=== PATIENT | male | born 1955 | race Caucasian/White ===

== ENCOUNTER → 2017-01-23 | Outpatient (CLI) | payer OTHER | LOC: BMCIMAGING 08:49 | PROVIDERS: ATTEND Family Medicine | DX: R14.0 Abdominal distension (gaseous) (principal); R10.9 Unspecified abdominal pain ==

== ENCOUNTER 2017-02-06 18:57 | Emergency (ER) | payer OTHER ==
[2017-02-06 19:10] VITALS: TEMP 97.9
[2017-02-06] MEDS ORDERED: HYDROmorphONE/DILAUDID 1 MG/ML SYR IVP ONE (19:39)
[2017-02-06] MEDS ORDERED: ONDANSETRON 4 MG/2 ML VIAL IVP ONE (19:39)
[2017-02-06] MEDS ORDERED: NS 1,000 ML IV ONE (19:39)
--- NOTE | 2017-02-06 19:40 | EDPHY ---
H & P Stated Complaint: abd pain bloating similar episode 2 weeks ago constipated pre urgent care HPI/ROS: HPI CHIEF COMPLAINT: Abdominal pain, abdominal bloating HISTORY OF PRESENT ILLNESS: This patient very pleasant 61-year-old male no significant medical history does not take any daily medications he presents emergency room with 1 day of lower abdominal pain and abdominal bloating describes abdominal fullness and distension. Patient tells me that he had the same exact episode 2 weeks ago when he went to urgent care had an x-ray was thought to be constipated he took milk of magnesia and eventually had a bowel movement felt better. He tells me that he has normal bowel movements every day. He has been having normal bowel movements no difference in his stool. He has not had any fever he has not had any nausea vomiting he does tell me he feels anxious. His main complaint is abdominal bloating. He did attempt to take 2 doses of milk of magnesia has not relieved his abdominal discomfort and abdominal bloating. He does tell me he had a colonoscopy that was normal. No surgical history of the abdomen. He does tell me since arriving to the emergency room did have a small bowel movement from the milk a magnesia he took earlier. Tells me still feels abdominal pain and abdominal bloating. Denies chest pain, shortness of breath, did mention that he had lower back pain with his abdominal pain. Past Medical History: No medical history Past Surgical History: no surgical history Social History: Denies daily use of drugs alcohol tobacco products, works as an executive, occasional alcohol use Family History: Noncontributory ROS REVIEW OF SYSTEMS: A comprehensive 10 point review of systems is otherwise negative aside from elements mentioned in the history of present illness. Exam Constitutional triage nursing summary reviewed, vital signs reviewed, awake/ alert. Eyes normal conjunctivae and sclera, EOMI, PERRLA. HENT normal inspection, atraumatic, moist mucus membranes, no epistaxis, neck supple/ no meningismus, no raccoon eyes. Respiratory clear to auscultation bilaterally, normal breath sounds, no respiratory distress, no wheezing. Cardiovascular rate normal, regular rhythm, no murmur, no edema, distal pulses normal. Gastrointestinal soft, mild tenderness palpation lower abdomen, no rebound, no guarding, normal bowel sounds, no distension, no pulsatile mass. Genitourinary no CVA tenderness. Musculoskeletal no midline vertebral tenderness, full range of motion, no calf swelling, no tenderness of extremities, no meningismus, good pulses, neurovascularly intact. Skin pink, warm, & dry, no rash, skin atraumatic. Neurologic awake, alert and oriented x 3, AAOx3, moves all 4 extremities equally, motor intact, sensory intact, CN II-XII intact, normal cerebellar, normal vision, normal speech. Psychiatric normal mood/affect. Heme/Lymph/Immune no lymphadenopathy. Differential diagnosis includes but is not limited to and in no particular order : Bowel obstruction, appendicitis, gallbladder disease, diverticulitis, colitis , enteritis, perforated viscus, gastritis, GERD, esophagitis, urinary tract infection, pyelonephritis, kidney stones Medical Decision Making: Plan for this patient IV establishment, IV fluid bolus , IV Dilaudid for acute pain control, IV Zofran for nausea. CT scan abdomen pelvis with IV contrast rule out acute intra-abdominal process. Re-evaluation: CT scan of the abdomen pelvis with IV contrast. The results of the study are negative for acute intra-abdominal process The study was read by Dr. Richard Zhu. I viewed the images myself on the PACS system. [id number]: I did go over extensively this patient's blood work and CT scan. He understands to follow up outpatient with his CT scan lymph nodes in 3-6 months. Review of his blood work and CT scan shows no acute inflammatory process or anything to indicate there is an acute surgical emergency in his abdomen. Blood work reassuring. He understands. I do recommend MiraLax staying well hydrated he also is extremely anxious here I did give him IV Ativan he tells me that made him feel much better. I will allow him to have a take-home pack of Ativan for anxiety. He is requesting this. Understands return emergency room if develops worsening abdominal pain fever vomiting. Source: Patient - Personal History Current Tetanus/Diphtheria Vaccine: Yes Current Tetanus Diphtheria and Acellular Pertussis (TDAP): Yes - Medical/Surgical History Hx Asthma: No Hx Chronic Respiratory Disease: No Hx Diabetes: No Hx Cardiac Disease: No Hx Renal Disease: No Hx Cirrhosis: No Hx Alcoholism: No Hx HIV/AIDS: No Hx Splenectomy or Spleen Trauma: No Other PMH: tonsils - Social History Smoking Status: Never smoked Constitutional: Initial Vital Signs Temperature (C) 36.6 C 02/06/17 19:05 Heart Rate 84 02/06/17 19:05 Respiratory Rate 18 02/06/17 19:05 Blood Pressure 139/89 H 02/06/17 19:05 O2 Sat (%) 98 02/06/17 19:05 O2 Delivery Mode Room Air Allergies/Adverse Reactions: ampicillin Allergy (Verified 02/06/17 19:05) Home Medications: Medication Instructions Recorded Advil 02/06/17 LORazepam [Ativan (*)] 1 mg PO DAILY #5 tab 02/06/17 Medical Decision Making - Diagnostics Imaging Results: Imaging Impressions Abdomen CT 02/06/17 19:48 Impression: 1. No acute findings in the abdomen or pelvis. 2. Nonspecific mildly prominent lymph nodes in the right upper quadrant, which could be reactive. Recommend follow-up CT in 3-6 months. 3. Fatty liver. 4. 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 5. Additional findings, as above. Findings discussed with Dick Palma M.D., on February 06, 2017 at 2133 hours. E:amm - Data Points Laboratory Results: Laboratory Results 02/06/17 19:55 02/06/17 19:55 02/06/17 02/06/17 02/06/17 20:30 19:55 19:55 WBC RBC Hgb Hct MCV MCH MCHC RDW Plt Count MPV Neut % (Auto) Lymph % (Auto) [place] % (Auto) Eos % (Auto) Baso % (Auto) Nucleat RBC Rel Count Absolute Neuts (auto) Absolute Lymphs (auto) Absolute Monos (auto) Absolute Eos (auto) Absolute Basos (auto) Absolute Nucleated RBC Immature Gran % Immature Gran # PT 13.8 SEC SEC (12.0-15.0) INR 1.07 (0.83-1.16) APTT 25.9 SEC SEC (23.0-38.0) VBG Lactic Acid Sodium 140 mEq/L mEq/L (134-144) Potassium 3.8 mEq/L mEq/L (3.5-5.2) Chloride 102 mEq/L mEq/L (97-110) Carbon Dioxide 25 mEq/l mEq/l (22-31) Anion Gap 13 mEq/L mEq/L (8-16) BUN 12 mg/dL mg/dL (7-23) Creatinine 0.7 mg/dL mg/dL (0.7-1.3) Estimated GFR > 60 Glucose 92 mg/dL mg/dL (70-100) Calcium 10.1 mg/dL mg/dL (8.5-10.4) Total Bilirubin 1.1 mg/dL mg/dL (0.1-1.4) Conjugated Bilirubin 0.5 mg/dL mg/dL (0.0-0.5) Unconjugated Bilirubin 0.6 mg/dL mg/dL (0.0-1.1) AST 65 IU/L H IU/L (17-59) ALT 63 IU/L IU/L (21-72) Alkaline Phosphatase 89 IU/L IU/L (38-126) Troponin I < 0.012 ng/mL ng/mL (0-0.034) Total Protein 7.5 g/dL g/dL (6.3-8.2) Albumin 4.5 g/dL g/dL (3.5-5.0) Lipase 340.0 IU/L H IU/L (23-300) Urine Color PALE YELLOW Urine Appearance CLEAR Urine pH 8.0 H (5.0-7.5) Ur Specific [place] 1.006 (1.002-1.030) Urine Protein NEGATIVE (NEGATIVE) Urine Ketones TRACE H (NEGATIVE) Urine Blood NEGATIVE (NEGATIVE) Urine Nitrate NEGATIVE (NEGATIVE) Urine Bilirubin NEGATIVE (NEGATIVE) Urine Urobilinogen NEGATIVE EU EU (0.2-1.0) Ur Leukocyte Esterase NEGATIVE (NEGATIVE) Urine Glucose NEGATIVE (NEGATIVE) 02/06/17 02/06/17 19:55 19:55 WBC 5.77 10^3/uL 10^3/uL (3.80-9.50) RBC 4.56 10^6/uL 10^6/uL (4.40-6.38) Hgb 15.8 g/dL g/dL (13.7-17.5) Hct 45.6 % % (40.0-51.0) MCV 100.0 fL H fL (81.5-99.8) MCH 34.6 pg H pg (27.9-34.1) MCHC 34.6 g/dL g/dL (32.4-36.7) RDW 11.7 % % (11.5-15.2) Plt Count 111 10^3/uL L 10^3/uL (150-400) MPV 11.8 fL H fL (8.7-11.7) Neut % (Auto) 56.5 % % (39.3-74.2) Lymph % (Auto) 27.0 % % (15.0-45.0) [place] % (Auto) 15.4 % H % (4.5-13.0) Eos % (Auto) 0.3 % L % (0.6-7.6) Baso % (Auto) 0.5 % % (0.3-1.7) Nucleat RBC Rel Count 0.0 % % (0.0-0.2) Absolute Neuts (auto) 3.25 10^3/uL 10^3/uL (1.70-6.50) Absolute Lymphs (auto) 1.56 10^3/uL 10^3/uL (1.00-3.00) Absolute Monos (auto) 0.89 10^3/uL H 10^3/uL (0.30-0.80) Absolute Eos (auto) 0.02 10^3/uL L 10^3/uL (0.03-0.40) Absolute Basos (auto) 0.03 10^3/uL 10^3/uL (0.02-0.10) Absolute Nucleated RBC 0.00 10^3/uL 10^3/uL (0-0.01) Immature Gran % 0.3 % % (0.0-1.1) Immature Gran # 0.02 10^3/uL 10^3/uL (0.00-0.10) PT INR APTT VBG Lactic Acid 2.1 mmol/L mmol/L (0.7-2.1) Sodium Potassium Chloride Carbon Dioxide Anion Gap BUN Creatinine Estimated GFR Glucose Calcium Total Bilirubin Conjugated Bilirubin Unconjugated Bilirubin AST ALT Alkaline Phosphatase Troponin I Total Protein Albumin Lipase Urine Color Urine Appearance Urine pH Ur Specific [place] Urine Protein Urine Ketones Urine Blood Urine Nitrate Urine Bilirubin Urine Urobilinogen Ur Leukocyte Esterase Urine Glucose Medications Given: Discontinued Medications Hydromorphone HCl (Dilaudid) 0.5 mg IVP EDNOW ONE Stop: 02/06/17 19:40 Last Admin: 02/06/17 19:58 Dose: 0.5 mg Sodium Chloride (Ns) 1,000 mls @ 0 mls/hr IV ONCE ONE PRN Reason: Wide Open Stop: 02/06/17 19:40 Last Admin: 02/06/17 19:58 Dose: 1,000 mls Lorazepam (Ativan Injection) 1 mg IVP EDNOW ONE Stop: 02/06/17 21:26 Last Admin: 02/06/17 21:42 Dose: 1 mg Ondansetron HCl (Zofran) 4 mg IVP EDNOW ONE Stop: 02/06/17 19:40 Last Admin: 02/06/17 19:59 Dose: 4 mg Departure - Departure Disposition: Home, Routine, Self-Care Clinical Impression: Anxiety Abdominal pain Qualifiers: Abdominal location: generalized Qualified Code(s): R10.84 - Generalized abdominal pain Condition: Good Instructions: Abdominal Pain (ED), Anxiety (ED) Additional Instructions: 1. Return emergency room if you have worsening abdominal pain fever vomiting. Referrals: Charles Allred MD [Primary Care Provider] - As per Instructions Richard Shelton MD [Medical Doctor] - As per Instructions Prescriptions: LORazepam [Ativan (*)] 1 mg PO DAILY #5 tab
[2017-02-06] MEDS ORDERED: IOPAMIDOL (ISOVUE-300) 100 ML BTL IV ONE (19:50)
[2017-02-06 20:16] LABS: % IMMATURE GRANULYOCYTES 0.3 % (0.0-1.1); ABSOLUTE IMMATURE GRANULOCYTES 0.02 10^3/uL (0.00-0.10); ADD DIFF? NO; ADD MORPH? NO; ADD SCAN? NO; ATYPICAL LYMPHOCYTE FLAG 0 (0-99); FRAGMENT RBC FLAG 0 (0-99); HEMATOCRIT 45.6 % (40.0-51.0); HEMOGLOBIN 15.8 g/dL (13.7-17.5); LEFT SHIFT FLG 0 (0-99); LIPEMIA HEMOLYSIS FLAG 90 (0-99); MEAN CELL HEMOGLOBIN 34.6 pg (27.9-34.1); MEAN CELL HEMOGLOBIN CONCENTR. 34.6 g/dL (32.4-36.7); MEAN PLATELET VOLUME 11.8 fL (8.7-11.7); PLATELET CLUMPS FLAG 0 (0-99); PLATELET COUNT 111 10^3/uL (150-400); RED BLOOD CELL COUNT 4.56 10^6/uL (4.40-6.38); RED CELL DISTRIBUTION WIDTH 11.7 % (11.5-15.2)
[2017-02-06 20:29] LABS: INR 1.07 (0.83-1.16); PROTIME(PATIENT) 13.8 SEC (12.0-15.0)
[2017-02-06 20:30] LABS: APTT 25.9 SEC (23.0-38.0)
[2017-02-06 20:39] LABS: COLOR PALE YELLOW; LEUKOCYTE ESTERASE,URINE NEGATIVE (NEGATIVE); NITRITE,URINE NEGATIVE (NEGATIVE)
[2017-02-06 20:42] LABS: ALANINE AMINOTRANSFERASE 63 IU/L (21-72); ALBUMIN 4.5 g/dL (3.5-5.0); ALKALINE PHOSPHATASE 89 IU/L (38-126); ANION GAP 13 mEq/L (8-16); ASPARTATE AMINOTRANSFERASE 65 IU/L (17-59); BILIRUBIN,TOTAL 1.1 mg/dL (0.1-1.4); BILIRUBIN-CONJUGATED 0.5 mg/dL (0.0-0.5); BILIRUBIN-UNCONJUGATED 0.6 mg/dL (0.0-1.1); CALCIUM 10.1 mg/dL (8.5-10.4); CARBON DIOXIDE 25 mEq/l (22-31); CHLORIDE 102 mEq/L (97-110); CREATININE 0.7 mg/dL (0.7-1.3); GLOMERULAR FILTRATION RATE > 60; GLUCOSE 92 mg/dL (70-100); POTASSIUM 3.8 mEq/L (3.5-5.2); SODIUM 140 mEq/L (134-144); TOTAL PROTEIN 7.5 g/dL (6.3-8.2)
[2017-02-06 20:53] LABS: TROPONIN I < 0.012 ng/mL (0-0.034)
[2017-02-06] MEDS ORDERED: LORazepam 2 MG/ML INJ IVP ONE (21:25)
[2017-02-06] MEDS ORDERED: LORAZEPAM 1 MG PREPACK#4 BTL TAKEHOME ONE (21:57)
[2017-02-06 22:17] VITALS: BP 148/103; PULSE 80; RESP 16; O2SAT 96
== END 2017-02-06 22:17 | disposition home or self-care (01) ==
DX: R10.84 Generalized abdominal pain (principal); F41.9 Anxiety disorder, unspecified
CPT/HCPCS: 96374; J1170; J2060; J2405; Q9967

== ENCOUNTER → 2017-02-21 | Outpatient (CLI) | payer OTHER | LOC: FIMAGING 09:07 | PROVIDERS: ATTEND Internal Medicine | DX: K21.9 Gastro-esophageal reflux disease without esophagitis (principal); R10.30 Lower abdominal pain, unspecified ==

== ENCOUNTER 2018-07-06 02:40 | Emergency (ER) | payer OTHER ==
--- NOTE | 2018-07-06 03:08 | EDPHY ---
H & P Stated Complaint: fall going to br lac to head Time Seen by Provider: 07/06/18 02:58 HPI/ROS: Chief Complaint: Fall, head injury, rib pain HPI: 62-year-old male got up to go the bathroom this morning and tripped and fell striking his head in the bathroom. He landed on his left side and has abrasions left upper arm and has pain in his right chest wall. Does not believe he had a loss of consciousness. Does admit to several alcoholic beverages earlier. No nausea or vomiting. No confusion. No neck pain. No numbness or weakness. He is not on any blood thinning medications but does take ibuprofen every day. No fevers or chills. No abdominal pain. ROS: 10 systems were reviewed and were negative except those elements noted in the HPI. PMH: Denies Social History: No smoking, occasional alcohol Family History: non-contributory Physical Exam: Gen: Awake, Alert, Airway Intact HEENT: Head: 3 cm laceration on his left tenriism, no active bleeding, no bony tenderness or step-offs Eyes: PERRLA, EOMI Nose: No epistaxis Mouth: Normal dentition, Airway patent Face: No deformity Neck: non-tender, no stepoff, Full ROM without pain Chest: Patient has tenderness in his left anterior lower ribs with mild crepitus, lungs CTA Heart: normal heart tones Abd: soft, non-tender, atraumatic Pelvis: non-tender, stable to AP and Lateral compression Back: atraumatic, no midline tenderness Ext: Left upper arm abrasion, no bony tenderness, full ROM Skin: no rash Neuro: CN II-XII intact, Strength 5/5 in all extremities, sensation intact in all extremities - Personal History Current Tetanus/Diphtheria Vaccine: Yes Current Tetanus Diphtheria and Acellular Pertussis (TDAP): Yes - Medical/Surgical History Hx Asthma: No Hx Chronic Respiratory Disease: No Hx Diabetes: No Hx Cardiac Disease: No Hx Renal Disease: No Hx Cirrhosis: No Hx Alcoholism: No Hx HIV/AIDS: No Hx Splenectomy or Spleen Trauma: No Other PMH: tonsils - Social History Smoking Status: Never smoked Constitutional: Initial Vital Signs Temperature (C) 36.5 C 07/06/18 02:44 Heart Rate 77 07/06/18 02:44 Respiratory Rate 18 07/06/18 02:44 Blood Pressure 102/74 07/06/18 02:44 O2 Sat (%) 94 07/06/18 02:44 O2 Delivery Mode Room Air Allergies/Adverse Reactions: ampicillin Allergy (Verified 02/06/17 19:05) Home Medications: Medication Instructions Recorded Advil 02/06/17 Hydrocodone/Acetaminophen 1 - 2 each PO Q4-6PRN PRN #10 07/06/18 [Hydrocodon-Acetaminophen 5-325] tablet Lisinopril 07/06/18 Medical Decision Making - Diagnostics Imaging Results: CT scan of the head is negative for acute intracranial injury per Dr. Mark. Chest x-ray is negative per my interpretation. Imaging: Discussed imaging studies w/ side panel padder Radiologist Procedures: Procedure: Laceration repair. Verbal consent was obtained from the patient. The 3 cm laceration on the left tenriism was anesthetized in the usual fashion. The wound was irrigated, draped and explored to its base with a gloved finger. There were no deep structures involved. No tendon injury was identified. The wound was repaired with a layered closure. There are 5, 5 0 Vicryl deep sutures. Skin was closed with 5 , 6-0 Ethilon simple interrupted sutures The wound repair was complicated layered closure of the face. The procedure was performed by myself. ED Course/Re-evaluation: Patient is up and ambulating. Was given ibuprofen for his pain. He will be given an incentive spirometer and analgesia. Follow up with primary care physician. Departure - Departure Disposition: Home, Routine, Self-Care Clinical Impression: Chest wall pain, Abrasion, Laceration of face Condition: Good Instructions: Chest Wall Pain (ED), How to Use an Incentive Spirometer (ED), Facial Laceration (ED), Care For Your Stitches (ED), Abrasion (ED), Hydrocodone/ Acetaminophen (By mouth) Additional Instructions: Sutures need to be removed in 5 days. Use the breathing device every 10 min while awake. Take ibuprofen, 600 mg every 8 hr. You may alternate with acetaminophen, 1000 mg every 8 hr. For breakthrough pain you may take acetaminophen with hydrocodone. Do not take regular acetaminophen if you're taking the acetaminophen with hydrocodone. Follow up with primary care physician in 3-4 days for further evaluation. Return to the emergency department for increasing headache, nausea, vomiting, redness, fever, discharge from the wound, or any other concerns. Referrals: Charles Allred MD [Primary Care Provider] - As per Instructions Prescriptions: Hydrocodone/Acetaminophen [Hydrocodon-Acetaminophen 5-325] 1 - 2 each PO Q4- 6PRN PRN #10 tablet PRN Reason: Pain, Severe
[2018-07-06] MEDS ORDERED: IBUPROFEN 600 MG TAB PO ONE (04:45)
[2018-07-06] MEDS ORDERED: HYDROCOD/APAP 5/325 PREPACK#6 BTL TAKEHOME ONE (04:47)
[2018-07-06 05:47] VITALS: BP 90/61
== END 2018-07-06 05:17 | disposition home or self-care (01) ==
PROC: 0HQ1XZZ Repair Face Skin, External Approach (ICD-10-PCS; principal; 2018-07-06)
DX: S01.81XA Laceration without foreign body of other part of head, initial encounter (principal); W01.0XXA Fall on same level from slipping, tripping and stumbling without subsequent striking against object, initial encounter; Y93.E8 Activity, other personal hygiene; Y92.012 Bathroom of single-family (private) house as the place of occurrence of the external cause; Y99.8 Other external cause status